=== PATIENT | female | born 1985 | race Caucasian/White ===

== ENCOUNTER 2021-04-18 12:19 | Emergency (ER) | payer OTHER ==
[~2021-04-18] VITALS: Ht 175.3 cm; Wt 109.1 kg
[2021-04-18] MEDS ORDERED: NORCO 325 MG-51 TAB PO (13:17)
[2021-04-18 13:54] VITALS: BP 118/78; PULSE 76; TEMP 97.8
== END 2021-04-18 13:56 | disposition home or self-care (01) ==
LOC: COL.ER 12:19
DX: S86.912A Strain of unspecified muscle(s) and tendon(s) at lower leg level, left leg, initial encounter (principal); X50.1XXA Overexertion from prolonged static or awkward postures, initial encounter
CPT/HCPCS: J1885